=== PATIENT | male | born 1980 | race Caucasian/White ===

== ENCOUNTER 2019-10-15 11:15 | Emergency (ER) | payer OTHER ==
[2019-10-15 11:50] VITALS: BP 129/77; TEMP 96; O2SAT 97
--- NOTE | 2019-10-15 12:17 | ED.PDOC ---
History of Present Illness - General Chief Complaint: Neuro Symptoms/Deficits Stated Complaint: left arm pain Time Seen by Provider: 10/15/19 11:22 Source: patient, RN notes reviewed, Vital Signs reviewed - History of Present Illness Timing/Duration: 1-3 hours Allergies/Adverse Reactions: Allergies Amoxicillin Allergy (Unknown, Verified 10/15/19 11:50) Unknown Home Medications: Ambulatory Orders Pregabalin [Lyrica] 75 mg PO BID 10/15/19 Pregabalin [Lyrica] 100 mg PO BEDTIME 10/15/19 Rizatriptan Benzoate [Maxalt] 10 mg PO PRN 10/15/19 Sertraline HCl [Zoloft] 100 mg PO DAILY 10/15/19 Review of Systems - Review of Systems Constitutional: Denies: chills, fever Respiratory: Denies: short of breath Cardiology: Denies: chest pain Gastrointestinal/Abdominal: Denies: diarrhea, nausea, vomiting Musculoskeletal: Denies: neck pain Neurological: States: weakness. Denies: numbness Past Medical History (General) - Patient Medical History Hx Seizures: No Hx Stroke: No Hx Dementia: No Hx Asthma: No Hx of COPD: No Hx Cardiac Disorders: No Hx Congestive Heart Failure: No Hx Pacemaker: No Hx Hypertension: No Hx Thyroid Disease: No Hx Diabetes: No Hx Gastroesophageal Reflux: No Hx Renal Disease: No Surgical History: other - Vaccination History Hx Influenza Vaccination: Yes Hx Pneumococcal Vaccination: No - Social History Hx Tobacco Use: No Hx Alcohol Use: No Hx Substance Use: No Hx Substance Use Treatment: No Hx Depression: No Family Medical History - Family History Mother Family History: Unknown Physical Exam - Physical Exam General Appearance: Alert, Comfortable, No apparent distress Eye Exam: bilateral normal Neck: full range of motion, supple, other - No midline spinal tenderness in C- spine Respiratory: normal breath sounds, no accessory muscle use Cardiovascular/Chest: normal peripheral pulses, regular rate, rhythm Peripheral Pulses: radial,right: 2+, radial,left: 2+ Extremities Exam: non-tender, normal range of motion, no evidence of injury, no edema Mental Status: alert, oriented x 3 Motor/Sensory: no motor deficit - 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 Symptoms had resolved by the time he arrived to the ER. He had no neck pain, vision changes, speech abnormalities, or other weakness. Symptoms were not consistent with CVA. He has no nausea, vomiting or diarrhea to suggest electrolyte derangement. He had no true focal neurologic deficits on exam. CT head did not show any acute intracranial hemorrhage. There was no signs of new disc herniation on CT of cervical spine. MRI of cervical spine could not be obtained. I discussed this with the patient. He noted that he was feeling better and back to baseline. Stated he felt better and wanted to return home. He has plans for outpatient neurology follow-up at the clinic. He will be discharged home with plans for outpatient follow-up. - Results/Orders Results/Orders: Reporting MD: Shimon Recih Internal Revenue Agent date: Dictation date: EXAM DESCRIPTION: Cervical Spine CLINICAL HISTORY: LUE weakness COMPARISON: None Available. TECHNIQUE: Cervical CT is performed with thin-section axial imaging. MPRs are created and reviewed as well. FINDINGS: Axial bone window images reveal intact ring of C1. No abnormal widening of the atlantodens interval. No fracture of the vertebral bodies or transverse processes or posterior elements. Lung apices appear clear. No cervical mass or adenopathy. Sagittal reformatted images show normal alignment of vertebral bodies and facets. No jumped facet or facet fracture. Normal craniocervical alignment. No prevertebral soft tissue swelling. No a avulsion of the spinous processes. Spondylosis: Advanced d egenerative disc disease at C4-5 and C5-6 with moderate posterior disc/osteophyte complexes. No high-grade spinal stenosis. Demineralized appearance of T1 is thought to be artifactual. Coronal reformatted images show normal atlantooccipital and atlantoaxial alignment. The base of the dens is intact as is the body of C2. Intact lateral masses. IMPRESSION: Negative for fracture. Degenerative changes as described. This exam was performed according to our departmental dose-optimization program, which includes automated exposure control, adjustment of the mA and/or kV according to patient size and/or use of iterative reconstruction technique. Total DLP equals 1256.14 mGycm. Electronically signed by: Shimon Reich MD 10/15/2019 12:49 PM [employer] Reporting MD: Shimon Reich Internal Revenue Agent date: Dictation date: EXAM DESCRIPTION: Head CLINICAL HISTORY: LUE weakness COMPARISON: None available TECHNIQUE: Noncontrast head CT was performed with routine protocol. FINDINGS: Normal ortiz-white matter differentiation. Ventricles and sulci are normal for age. No high density hemorrhage, focal edema or shift of the midline. No sulcal effacement. Normal orbital contents. Basilar cisterns appear clear. Intact calvarium with no fracture or lytic lesion. Normal aeration of tympanic cavities and mastoid air cells. No fluid levels in the paranasal sinuses. Skull base appears intact. Symmetrical internal auditory canals. IMPRESSION: No acute intracranial pathologic process. This exam was performed according to our departmental dose-optimization program, which includes automated exposure control, adjustment of the mA and/or kV according to patient size and/or use of iterative reconstruction technique. Total DLP equals 1256.14 mGycm. Electronically signed by: Shimon Reich MD 10/15/2019 12:45 PM [employer] Departure - Departure Clinical Impression: Cervical radiculopathy, Left arm weakness Time of Disposition: 12:55 Disposition: Discharge to Home or Self Care Condition: Good Departure Forms: ED Discharge - Pt. Copy, Patient Portal Self Enrollment Instructions: Radiculopathy (DC) Home Medications: Ambulatory Orders Pregabalin [Lyrica] 75 mg PO BID 10/15/19 Pregabalin [Lyrica] 100 mg PO BEDTIME 10/15/19 Rizatriptan Benzoate [Maxalt] 10 mg PO PRN 10/15/19 Sertraline HCl [Zoloft] 100 mg PO DAILY 10/15/19 Comments: Dieudonne Albarran D.O. [id number]
--- NOTE | 2019-10-15 12:47 | CT ---
EXAM DESCRIPTION: Head CLINICAL HISTORY: LUE weakness COMPARISON: None available TECHNIQUE: Noncontrast head CT was performed with routine protocol. FINDINGS: Normal ortiz-white matter differentiation. Ventricles and sulci are normal for age. No high density hemorrhage, focal edema or shift of the midline. No sulcal effacement. Normal orbital contents. Basilar cisterns appear clear. Intact calvarium with no fracture or lytic lesion. Normal aeration of tympanic cavities and mastoid air cells. No fluid levels in the paranasal sinuses. Skull base appears intact. Symmetrical internal auditory canals. IMPRESSION: No acute intracranial pathologic process. This exam was performed according to our departmental dose-optimization program, which includes automated exposure control, adjustment of the mA and/or kV according to patient size and/or use of iterative reconstruction technique. Total DLP equals 1256.14 mGycm. Electronically signed by: Shimon Reich MD 10/15/2019 12:45 PM [facility]
--- NOTE | 2019-10-15 12:51 | CT ---
EXAM DESCRIPTION: Cervical Spine CLINICAL HISTORY: LUE weakness COMPARISON: None Available. TECHNIQUE: Cervical CT is performed with thin-section axial imaging. MPRs are created and reviewed as well. FINDINGS: Axial bone window images reveal intact ring of C1. No abnormal widening of the atlantodens interval. No fracture of the vertebral bodies or transverse processes or posterior elements. Lung apices appear clear. No cervical mass or adenopathy. Sagittal reformatted images show normal alignment of vertebral bodies and facets. No jumped facet or facet fracture. Normal craniocervical alignment. No prevertebral soft tissue swelling. No a avulsion of the spinous processes. Spondylosis: Advanced degenerative disc disease at C4-5 and C5-6 with moderate posterior disc/osteophyte complexes. No high-grade spinal stenosis. Demineralized appearance of T1 is thought to be artifactual. Coronal reformatted images show normal atlantooccipital and atlantoaxial alignment. The base of the dens is intact as is the body of C2. Intact lateral masses. IMPRESSION: Negative for fracture. Degenerative changes as described. This exam was performed according to our departmental dose-optimization program, which includes automated exposure control, adjustment of the mA and/or kV according to patient size and/or use of iterative reconstruction technique. Total DLP equals 1256.14 mGycm. Electronically signed by: Shimon Reich MD 10/15/2019 12:49 PM [facility]
== END 2019-10-15 13:04 | disposition home or self-care (01) ==
LOC: ER 11:15
DX: M54.12 Radiculopathy, cervical region (principal); R29.898 Other symptoms and signs involving the musculoskeletal system; Z79.899 Other long term (current) drug therapy; Z88.1 Allergy status to other antibiotic agents